=== PATIENT | male | born 1985 | race Caucasian/White ===

== ENCOUNTER 2019-12-22 19:21 | Emergency (ER) | payer OTHER ==
[~2019-12-22] VITALS: Ht 177.8 cm; Wt 84.0 kg
[2019-12-22] MEDS ORDERED: LIDOCAINE-MPF 1%, 5ML ONE ×2 (20:56→21:13)
[2019-12-22] MEDS ORDERED: LIDOCAINE-MPF 1%, 5ML INFIL ONE (21:00)
[2019-12-22] MEDS ORDERED: NEOSPORIN OINT. PKT 1 PACKET ONE (22:13)
[2019-12-22 22:38] VITALS: BP 132/78
== END 2019-12-22 22:41 | disposition home or self-care (01) ==
LOC: ED 22:38
DX: S01.511A Laceration without foreign body of lip, initial encounter (principal); Y04.0XXA Assault by unarmed brawl or fight, initial encounter; Y93.89 Activity, other specified; Y92.009 Unspecified place in unspecified non-institutional (private) residence as the place of occurrence of the external cause; Y99.8 Other external cause status
CPT/HCPCS: 12051; 40650; 99284